=== PATIENT | male | born 1960 | race Hispanic/Latino ===

== ENCOUNTER 2021-04-24 16:30 | Emergency (ER) | payer SELFPAY ==
[~2021-04-24] VITALS: Ht 170.2 cm; Wt 88.5 kg
[2021-04-24] MEDS ORDERED: TETANUS/DIPHTHERIA TOXOID [ADULT] 0.5 ML VIAL IM ONE (17:30)
[2021-04-24] MEDS ORDERED: HYDROCODONE/ACETAMINOPHEN 10/325 MG TAB PO ONE (17:30)
[2021-04-24] MEDS ORDERED: CEPHALEXIN 500 MG CAPSULE PO ONE (17:30)
[2021-04-24] MEDS ORDERED: OCTYL 2-CYANOACRYLATE 1 EACH TP ONE ×2 (17:38→17:42)
[2021-04-24 18:00] VITALS: BP 107/74
[2021-04-24] MEDS ORDERED: ACET-2247 PO (18:20)
[2021-04-24] MEDS ORDERED: CEPH500B PO (18:20)
== END 2021-04-24 18:49 | disposition home or self-care (01) ==
LOC: EDH 16:30
DX: S61.210A Laceration without foreign body of right index finger without damage to nail, initial encounter (principal); X58.XXXA Exposure to other specified factors, initial encounter; Y93.89 Activity, other specified; Y92.89 Other specified places as the place of occurrence of the external cause; Y99.8 Other external cause status
CPT/HCPCS: 12001; 73140; 90471; 90714

== ENCOUNTER 2021-04-29 19:17 | Emergency (ER) | payer SELFPAY ==
[~2021-04-29] VITALS: Ht 162.6 cm; Wt 92.5 kg
[~2021-04-29 19:17] MED LIST: ACET-2247 PO; CEPH500B PO
[2021-04-29] MEDS ORDERED: NEOM28.44 TP (19:41)
[2021-04-29 19:45] VITALS: BP 138/76
[2021-04-29] MEDS ORDERED: NEOMY SULF/BACITRA/POLYMYXIN B 1 EACH PACKET TP ONE (20:00)
== END 2021-04-29 20:00 | disposition home or self-care (01) ==
LOC: EDH 19:17
DX: S61.210D Laceration without foreign body of right index finger without damage to nail, subsequent encounter (principal); X58.XXXD Exposure to other specified factors, subsequent encounter
CPT/HCPCS: 99282